=== PATIENT | male | born 1970 | race Caucasian/White ===

== ENCOUNTER 2024-10-07 18:04 | Emergency (ER) | payer BC, SELFPAY ==
[2024-10-07] VITALS (14 sets, daily range): BP systolic 98–110; BP diastolic 62–71; PULSE 65–82; BMI 25.7
--- NOTE | 2024-10-07 18:14 | ED.GENMED ---
History of Present Illness
<Kacie Tovar PA-C - Last Filed: 10/08/24 03:38>
General
Chief Complaint: Allergic Reaction
Source: patient
Exam Limitations: none
Time Seen by Provider: 10/07/24 18:13
Nursing documentation reviewed up to this point in time: agreed with
History of Present Illness
History of Present Illness:
Patient is a 54-year-old male who presents to the emergency department via EMS for allergic reaction. Patient states about an hour ago he was stung in the left hand by 4-5 hornets. Shortly following this he developed swelling and redness of his
left hand as well as hives across his entire body. His was driving him to the emergency department when he became lightheaded prompting them to press puller and call 911. EMS states that patient got out of the car, took 4-5 steps and then had a
syncopal event. His pressure was 70/40. He then had an episode of emesis. He was given 1 dose of IM epinephrine as well as 50 p.o. Benadryl en route.
By arrival to ED patient reports significant improvement in his symptoms however feels slightly tremulous. He denies any chest tightness, shortness of breath/difficulty breathing. He denies any abdominal pain or persistent nausea. He denies any
itching in his throat or swelling of his mouth. Patient states he no longer feels lightheaded.
Patient has never had an anaphylactic reaction to a bee sting in the past. He has no known medical problems or allergies.
Review of Systems
<Kacie Tovar PA-C - Last Filed: 10/08/24 03:38>
Review of Systems
Allergies reviewed?: Yes
All Other Systems: ROS reviewed and negative except as documented in HPI and ROS
Phy Exam
<Kacie Tovar PA-C - Last Filed: 10/08/24 03:38>
Physical Exam
Physical Exam:
Vitals: Patient's vital signs are stable. Afebrile
General: Patient is pale appearing
Skin: Erythema and swelling of left hand. Urticarial rash noted on bilateral upper and lower extremities
Head: Normocephalic, atraumatic
Eyes: Sclera nonicteric. EOMs intact. No nystagmus.
Throat: Posterior pharynx not erythematous. No uvular swelling. No tongue swelling or deviation. No swelling of lips. Protecting airway
Neck: Normal ROM, no cervical spine tenderness, no meningismus
Cardiac: Regular rate and rhythm, no murmurs.
Pulm: Normal respiratory effort. Lungs clear bilaterally without wheeze. O2 99 on room air
Abdomen: Abdomen soft and nontender.
Extremities: No evidence of cyanosis or edema. Perfusing well
Neuro: AAOx3. Grossly intact.
Psychiatric: Normal affect.
Course
<Kacie Tovar PA-C - Last Filed: 10/08/24 03:38>
Orders/Labs/Results
Orders:
Orders
10/07/24 18:11
0.9% Sodium Chloride 1000 ml [Nss] 1,000 ml IV BOLUS
Dexamethasone Sod Phosphate [Decadron] 10 mg IV NOW STA
Famotidine [Pepcid] 20 mg IV NOW STA
10/07/24 18:21
Basic Metabolic Panel Urgent
Complete Blood Count/With Diff Urgent
10/07/24 19:05
Electrocardiogram (*1) Urgent
Reason for Study: Fatigue / Weakness
EKG- Treatment ONCE
Abnormal Lab Results
10/07/24
18:21
RBC 4.49 L 10^6/uL
(4.70-6.10)
Hgb 12.8 L g/dL
(13.0-18.0)
Hct 38.1 L %
(39.0-52.0)
Absolute Monos (auto) 0.7 H 10^3/uL
(0.1-0.6)
Glucose 172 H mg/dl
(70-99)
10/07/24 18:21
10/07/24 18:21
Vital Signs
Blood pressure: 110/65
Initial and Last Documented VS:
Initial Vital Signs
BP
105/71
10/07/24 18:08
Last Documented Vital Signs
Temp Pulse Resp BP Pulse Ox
97.8 F 78 17 103/64 100
10/07/24 18:10 10/07/24 22:16 10/07/24 20:17 10/07/24 22:16 10/07/24 22:55
<Emerson Cooley, DO - Last Filed: 10/07/24 18:34>
Orders/Labs/Results
Orders:
Orders
10/07/24 18:11
0.9% Sodium Chloride 1000 ml [Nss] 1,000 ml IV BOLUS
Dexamethasone Sod Phosphate [Decadron] 10 mg IV NOW STA
Famotidine [Pepcid] 20 mg IV NOW STA
10/07/24 18:21
Basic Metabolic Panel Urgent
Complete Blood Count/With Diff Urgent
10/07/24 19:05
Electrocardiogram (*1) Urgent
Reason for Study: Fatigue / Weakness
EKG- Treatment ONCE
Abnormal Lab Results
10/07/24
18:21
RBC 4.49 L 10^6/uL
(4.70-6.10)
Hgb 12.8 L g/dL
(13.0-18.0)
Hct 38.1 L %
(39.0-52.0)
Absolute Monos (auto) 0.7 H 10^3/uL
(0.1-0.6)
Glucose 172 H mg/dl
(70-99)
10/07/24 18:21
10/07/24 18:21
Vital Signs
Initial and Last Documented VS:
Initial Vital Signs
BP
105/71
10/07/24 18:08
Last Documented Vital Signs
Temp Pulse Resp BP Pulse Ox
97.8 F 78 17 103/64 100
10/07/24 18:10 10/07/24 22:16 10/07/24 20:17 10/07/24 22:16 10/07/24 22:55
<Kacie Tovar PA-C - Last Filed: 10/08/24 03:38>
MDM/Problems Addressed
Differential Diagnosis Includes:
Not limited to: Anaphylaxis, anaphylactic shock, acute dehydration, hypotension, cardiac arrhythmia, etc.
MDM/Problems Addressed:
54-year-old male presenting via EMS with anaphylaxis. He sustained multiple bee stings to his left hand as well as legs prior to onset of hives and lightheadedness. And route he had a syncopal event with pressure 70s/30s and 1 episode of emesis.
Patient given 50 p.o. Benadryl as well as 1 dose of IM epi prior to arrival. By my assessment�patient's blood pressure is 105/71. He is oxygenating at 99% on room air. He is alert and oriented. Heart regular rate and rhythm with clear lungs
bilaterally. No wheezing. Abdomen soft and nontender. Some urticarial rash noted to bilateral lower extremities as well as edema of left hand near site of stings. No evidence of swelling of mouth or erythema of posterior pharynx. He is mildly
tremulous likely from epinephrine.
Patient now hemodynamically stable with improvement in symptoms following epinephrine. Will give IV Decadron, Pepcid and monitor.
Update: Basic labs without acute findings. EKG without acute changes. Patient remains hemodynamically stable with improvement in symptoms.
Update 10:10 PM: Patient has been monitored for 4 hours in the emergency department. He has remained hemodynamically stable and asymptomatic without any evidence of rebound anaphylaxis. He has not required any additional doses of epinephrine.
Orthostatic vital signs stable and he is ambulatory around the department without symptoms. Offered patient admission for observation however do feel patient stable for discharge home. Patient prefers discharge home as he states he feels better.
Prescription sent for EpiPen. Very strict return precautions discussed.
Chronic conditions affecting care:
N/A
Acute Exacerbation and/or Progression of Chronic Illness:
N/A
<Kacie Tovar PA-C - Last Filed: 10/08/24 03:38>
*Pulse Oximetry
SaO2: 99
Oxygen Mode of Delivery: Room air
Patient hypoxic: no
*EKG
Interpreted by ED Provider?: Yes
EKG Intrepretation Date: 10/07/24
Interpretation: normal
Comparison EKG: no comparison EKG present
Heart Rate: 59
Rate: bradycardiac
Rhythm: sinus
[place]: normal axis
Interval: normal QT interval
QRS Pattern: normal QRS
Ischemia: no ischemia
*Career Resource Technician Interpretation
Rate: normal
Interpretation: normal
Heart Rate: 68
Rhythm: sinus
*Critical Care Note
Total Time (30-74mins, 75-104mins- exclusive of procedures): Not Applicable
ED Attending Note
<Kacie Tovar PA-C - Last Filed: 10/08/24 03:38>
-
Portions of this chart may have been created with voice recognition software.� Occasional wrong word or��sound alike� substitutions may have occurred due to the inherent limitations of voice recognition software.
<Emerson Cooley DO - Last Filed: 10/07/24 18:34>
ED Attending Note
Patient seen and examined by attending physician: Yes
I performed the substantive portion of visit, reviewed & personally made and approve the management plan that is documented in note by myself or OSCAR.: Yes
Discharge Plan
Departure
Patient Disposition: Home (Routine Discharge)
Date of Disposition: 10/07/24
Time of Disposition: 22:35
Patient with high blood pressure during this ER visit?: No
Discharge Problem:
Anaphylaxis
Instructions: Anaphylaxis - Discharge instructions
Prescriptions:
New
epinephrine [EpiPen] 0.3 mg/0.3 mL auto-injector
0.3 mg IM .STAT PRN (Reason: anaphylaxis) Qty: 1 3RF
Referrals:
Anny Grande MD [Active, Heat And Vent Aircraft Mechanic] - Call in 1-3 days for appt
Douglas Lewis DO [Family Provider, Internal Medicine] - Follow up in 5-7 days
Activity Restrictions/Additional Instructions:
RETURN TO THE EMERGENCY DEPARTMENT WITH ANY CHEST OR THROAT TIGHTNESS, DIFFICULTY BREATHING/SHORTNESS OF BREATH, SWELLING OF MOUTH, LIPS, OR TONGUE, RASH, VOMITING, LIGHTHEADEDNESS/DIZZINESS WORSENING OF CURRENT SYMPTOMS, OR ANY OTHER CONCERNS
- You were treated for an anaphylactic reaction to bee stings while in the emergency department.
- A prescription for an EpiPen has been sent to your pharmacy. Please keep this on hand for any future reactions.
- You can take Motrin as needed for pain from bites.
- Follow-up with primary care/engineered wood designer for further evaluation/management to ensure that your symptoms improve
Monitor your symptoms closely and return to the emergency department with any acute worsening/new symptoms
Interventions
Interventions:
*Risk Screen - Suicide Last Done: 10/07/24 18:10
*General Assessment Last Done: 10/07/24 18:10
*Neglect/Abuse Screening Last Done: 10/07/24 18:10
*ED- Fall Risk Assessment Last Done: 10/07/24 18:10
*ED COVID-19 Vaccine History Last Done: 10/07/24 18:10
*Nursing Disposition Last Done: 10/07/24 22:55
ED- Cardiac Assessment Last Done: 10/07/24 18:10
ED- Pulmonary Assessment Last Done: 10/07/24 18:10
ED-Skin Assessment Last Done: 10/07/24 18:10
Discharge Date and Time
Discharge Date/Time: 10/07/24 22:55
Print Language: [id number]
[2024-10-07] MEDS: PEPCID 20 MG IV (18:19)
[2024-10-07] MEDS: NSS 1000 IV (18:19)
[2024-10-07] MEDS: DECADRON 10 MG IV (18:20)
[2024-10-07 18:31] LABS: Hematocrit 38.1 % (39.0-52.0); Hemoglobin 12.8 g/dL (13.0-18.0); Mean Corp Hgb Conc. 33.6 g/dL (33.0-37.0); Mean Corpuscular Volume 84.9 fL (80.0-94.0); Nucleated Red Blood Cells % 0 % (-); Platelet Count 272 10^3/uL (130-400); Red Cell Dist. Width 13.5 % (11.5-14.5)
[2024-10-07 18:55] LABS: Blood Urea Nitrogen 20 mg/dl (9-20); Calcium 8.6 mg/dl (8.4-10.2); Carbon Dioxide 25 mmol/L (22-30); Chloride 107 mmol/L (98-107); Estimated Creatinine Clearance 102 ml/min; Glucose 172 mg/dl (70-99); Potassium 3.8 mmol/L (3.5-5.1); Sodium 137 mmol/L (135-145); eGFR > 60.00
== END 2024-10-07 22:55 | disposition home or self-care (01) ==
LOC: EMR 18:04
PROVIDERS: Physician Assistant; EMERGENCY PHYSICIAN Emergency Medicine; FAMILY PHYSICIAN Internal Medicine
DX: T63.451A Toxic effect of venom of hornets, accidental (unintentional), initial encounter (principal); T78.2XXA Anaphylactic shock, unspecified, initial encounter
CPT/HCPCS: 99284; 96374; 96375; 96361; 80048; 85025; 93005

== ENCOUNTER → 2024-10-18 07:08 | Outpatient (REF) | payer BC, SELFPAY ==
[2024-10-18 08:03] LABS: Hematocrit 38.5 % (39.0-52.0); Hemoglobin 12.6 g/dL (13.0-18.0); Mean Corp Hgb Conc. 32.7 g/dL (33.0-37.0); Mean Corpuscular Volume 88.1 fL (80.0-94.0); Nucleated Red Blood Cells % 0 % (-); Platelet Count 235 10^3/uL (130-400); Red Cell Dist. Width 14.0 % (11.5-14.5)
[2024-10-18 08:07] LABS: Urine Character Slightly Cloudy (Clear)
[2024-10-18 09:14] LABS: ALT (SGPT) 17 U/L (0-50); AST (SGOT) 23 U/L (17-59); Albumin 4.3 g/dl (3.5-5.0); Alkaline Phosphatase 58 U/L (38-126); Blood Urea Nitrogen 16 mg/dl (9-20); Calcium 9.2 mg/dl (8.4-10.2); Carbon Dioxide 30 mmol/L (22-30); Chloride 105 mmol/L (98-107); Glucose 85 mg/dl (70-99); HDL Cholesterol 40 mg/dl; LDL Cholesterol, Calculated 112 mg/dl; Potassium 4.3 mmol/L (3.5-5.1); Sodium 139 mmol/L (135-145); Total Protein 6.8 g/dl (6.3-8.2); Very Low Density Lipoprotein 13 mg/dl (0-30); eGFR > 60.00
== END ==
LOC: REG 07:08
PROVIDERS: ATTENDING PHYSICIAN Nurse Practitioner Family
DX: T63.461S Toxic effect of venom of wasps, accidental (unintentional), sequela (principal); Z91.038 Other insect allergy status; R55 Syncope and collapse; E78.2 Mixed hyperlipidemia; Z00.00 Encounter for general adult medical examination without abnormal findings; Z12.5 Encounter for screening for malignant neoplasm of prostate
CPT/HCPCS: 80053; 80061; 81003; 84153; 84154; 84439; 84443; 85025

== ENCOUNTER → 2024-10-25 07:02 | Outpatient (REF) | payer BC, SELFPAY ==
[2024-10-25 07:51] LABS: Hematocrit 38.5 % (39.0-52.0); Hemoglobin 12.3 g/dL (13.0-18.0); Mean Corp Hgb Conc. 31.9 g/dL (33.0-37.0); Mean Corpuscular Volume 87.7 fL (80.0-94.0); Nucleated Red Blood Cells % 0 % (-); Platelet Count 222 10^3/uL (130-400); Red Cell Dist. Width 14.2 % (11.5-14.5)
[2024-10-25 08:12] LABS: Iron 48 ug/dl (49-181)
[2024-10-25 08:21] LABS: Total Iron Binding Capacity 441 ug/dl (261-462)
[2024-10-25 11:05] LABS: Ferritin 8.6 ng/ml (17.9-464.0)
[2024-10-25 11:36] LABS: Folate 10.5 ng/ml (2.76-20); Vitamin B12 354 pg/ml (239-931)
== END ==
LOC: REG 07:02
PROVIDERS: ATTENDING PHYSICIAN Nurse Practitioner Family
DX: D64.9 Anemia, unspecified (principal)
CPT/HCPCS: 36415; 82607; 82728; 82746; 83540; 83550; 85025

== ENCOUNTER → 2024-12-27 08:39 | Outpatient (REF) | payer SELFPAY | LOC: RAD 08:39 | PROVIDERS: ATTENDING PHYSICIAN Nurse Practitioner Family | DX: T63.461S Toxic effect of venom of wasps, accidental (unintentional), sequela (principal); Z91.038 Other insect allergy status; R55 Syncope and collapse; E78.2 Mixed hyperlipidemia; Z00.00 Encounter for general adult medical examination without abnormal findings; Z12.5 Encounter for screening for malignant neoplasm of prostate | CPT/HCPCS: 75571 ==

== ENCOUNTER → 2024-12-27 08:47 | Outpatient (REF) | payer BC, SELFPAY ==
[2024-12-27 09:59] LABS: Hematocrit 44.1 % (39.0-52.0); Hemoglobin 14.7 g/dL (13.0-18.0); Mean Corp Hgb Conc. 33.3 g/dL (33.0-37.0); Mean Corpuscular Volume 90.7 fL (80.0-94.0); Nucleated Red Blood Cells % 0 % (-); Platelet Count 196 10^3/uL (130-400); Red Cell Dist. Width 15.7 % (11.5-14.5)
[2024-12-27 13:28] LABS: ALT (SGPT) 22 U/L (0-50); AST (SGOT) 28 U/L (17-59); Albumin 4.6 g/dl (3.5-5.0); Alkaline Phosphatase 63 U/L (38-126); Blood Urea Nitrogen 13 mg/dl (9-20); Calcium 9.7 mg/dl (8.4-10.2); Carbon Dioxide 28 mmol/L (22-30); Chloride 104 mmol/L (98-107); Glucose 69 mg/dl (70-99); Potassium 4.4 mmol/L (3.5-5.1); Sodium 142 mmol/L (135-145); Total Protein 7.1 g/dl (6.3-8.2); eGFR > 60.00
[2024-12-29 01:26] LABS: Honeybee Venom <0.10 kU/L (<=0.34); White-Faced Hornet 11.70 kU/L (<=0.34); Yellow Jacket Venom 52.40 kU/L (<=0.34); Yellow-Faced Hornet 0.87 kU/L (<=0.34)
[2024-12-29 16:04] LABS: Complement Act., Total (CH50) 72.1 U/mL (38.7-89.9)
== END ==
LOC: REG 08:47
PROVIDERS: ATTENDING PHYSICIAN Internal Medicine; FAMILY PHYSICIAN Nurse Practitioner Family
DX: T63.451A Toxic effect of venom of hornets, accidental (unintentional), initial encounter (principal); T78.2XXA Anaphylactic shock, unspecified, initial encounter; L50.0 Allergic urticaria
CPT/HCPCS: 36415; 80053; 83520; 85025; 86003; 86160; 86162

== ENCOUNTER 2025-01-14 06:21 | Day surgery (SDC) | payer BC, SELFPAY | END 2025-01-14 15:38 | disposition home or self-care (01) | LOC: GI 06:21 | PROVIDERS: ATTENDING PHYSICIAN Internal Medicine | DX: D50.9 Iron deficiency anemia, unspecified (principal); K64.8 Other hemorrhoids; Q43.8 Other specified congenital malformations of intestine; K29.70 Gastritis, unspecified, without bleeding | CPT/HCPCS: 43239; 45378; 88305; 88342 ==